=== PATIENT | female | born 1940 | race Caucasian/White ===

== ENCOUNTER 2022-10-15 07:40 | Inpatient (IN) | payer OTHER ==
[~2022-10-15] VITALS: Ht 157.5 cm; Wt 68.0 kg
[2022-10-15] MEDS ORDERED: SYNTHROID112 MCG PO (07:53)
[2022-10-15] MEDS ORDERED: PROTONIX40 MG PO (07:53)
[2022-10-15] MEDS ORDERED: ATACAND16 MG PO (07:54)
[2022-10-15] MEDS ORDERED: MELOXICAM15 MG PO (07:54)
[2022-10-15] MEDS ORDERED: ZOCOR20 MG PO (07:54)
[2022-10-15] MEDS ORDERED: FOLIC ACID0.8 M1 PO (07:55)
[2022-10-16] MEDS ORDERED: GABAPENTIN400 MG (08:04)
== END 2022-10-19 17:51 | disposition home or self-care (01) | DRG 202 ==
LOC: ER 07:40 → MEDI 18:15
PROVIDERS: ADMIT Specialist; ATTEND Specialist
PROC: BB24ZZZ Computerized Tomography (CT Scan) of Bilateral Lungs (ICD-10-PCS; principal; 2022-10-15)
PROC: 3E0F7GC Introduction of Other Therapeutic Substance into Respiratory Tract, Via Natural or Artificial Opening (ICD-10-PCS; 2022-10-16)
DX: J20.9 Acute bronchitis, unspecified (principal); E87.1 Hypo-osmolality and hyponatremia; J45.901 Unspecified asthma with (acute) exacerbation; E86.0 Dehydration; E03.9 Hypothyroidism, unspecified